=== PATIENT | female | born 1970 | race Caucasian/White ===

== ENCOUNTER 2016-08-03 21:46 | Observation (INO) | payer MEDICAID ==
[~2016-08-03] VITALS: Ht 170.2 cm; Wt 132.0 kg
[2016-08-03 23:38] LABS: ASPARTATE AMINO TRANSFERASE 11 U/L (15-37); BLOOD UREA NITROGEN 18 mg/dL (7-18)
[2016-08-03 23:42] LABS: ANISOCYTOSIS 1+; OVALOCYTES 1+
[2016-08-03 23:43] LABS: MICROCYTOSIS 1+; POLYCHROMASIA 1+
[2016-08-03 23:49] LABS: IS PT STATUS REG ER OR PRE ER? YES
[2016-08-03] MEDS ORDERED: BUPR200T2 PO (23:50)
[2016-08-03] MEDS ORDERED: ARIP10TA13 PO (23:50)
[2016-08-03] MEDS ORDERED: CITA20TA5 PO (23:50)
[2016-08-03] MEDS ORDERED: TRAZ100T15 PO (23:50)
[2016-08-03] MEDS ORDERED: PRAZ2CAP2 PO (23:50)
[2016-08-03] MEDS ORDERED: SODIUM CHLORIDE 0.9% 1,000 ML IV ONE (23:55)
[2016-08-03] MEDS ORDERED: MORPHINE SULFATE 4 MG/ML, 1ML ONE (23:59)
[2016-08-04] MEDS ORDERED: NITROGLYCERIN SINGLE TAB 0.4 MG SL PRN
[2016-08-04] MEDS ORDERED: SODIUM CHLORIDE FLUSH 10ML SYR IVF ONE
[2016-08-04] MEDS ORDERED: ASPIRIN 81 MG TABLET CHEW ONE
[2016-08-04] MEDS ORDERED: NITROGLYCERIN SINGLE TAB 0.4 MG SL ONE
[2016-08-04] MEDS ORDERED: ASPIRIN 81 MG TABLET CHEW PO ONE
[2016-08-04] MEDS ORDERED: ONDANSETRON 2MG/ML, 2ML IVP PRN (00:30)
[2016-08-04] MEDS ORDERED: POLYETHYLENE GLYCOL 17 GM PACKET PO PRN (00:30)
[2016-08-04] MEDS ORDERED: DOCUSATE 100 MG CAPSULE PO PRN (00:30)
[2016-08-04] MEDS ORDERED: HYDROcodone/APAP 5/325 TABLET PO PRN (00:30)
[2016-08-04] MEDS ORDERED: ACETAMINOPHEN 325 MG TABLET PO PRN (00:30)
[2016-08-04] MEDS ORDERED: MORPHINE SULFATE 4 MG/ML, 1ML IVPush PRN ×2 (00:30)
[2016-08-04] MEDS ORDERED: BISACODYL 10 MG SUPP PR PRN (00:30)
[2016-08-04] MEDS ORDERED: NITROGLYCERIN 0.4 MG BOTTLE (25 TABS) SL PRN (00:30)
[2016-08-04] MEDS ORDERED: ENOXAPARIN 40 MG/0.4 ML ONE (00:40)
[2016-08-04] MEDS: ENOXAPARIN 40 MG/0.4 ML SQ SCH (01:34)
[2016-08-04] MEDS: TRAZODONE 100MG TABLET PO SCH ×2 (01:34→21:03)
[2016-08-04 06:11] LABS: IS PT STATUS REG ER OR PRE ER? YES
[2016-08-04] MEDS ORDERED: ASPIRIN 325 MG TABLET EC ONE (09:24)
[2016-08-04 10:36] VITALS: BP 118/52
[2016-08-04] MEDS: ASPIRIN 325 MG TABLET EC PO SCH (10:52)
[2016-08-04] MEDS: BUPROPION SR 100 MG TABLET PO SCH (10:52)
[2016-08-04] MEDS: ARIPIPRAZOLE 10 MG TABLET PO SCH (10:53)
[2016-08-04] MEDS: CITALOPRAM 20 MG TABLET PO SCH (10:53)
[2016-08-04] MEDS: PRAZOSIN 2 MG CAPSULE PO SCH (10:54)
[2016-08-04] MEDS: SODIUM CHLORIDE FLUSH 10ML SYR IVF SCH ×2 (10:55→21:03)
[2016-08-04] MEDS ORDERED: KETOROLAC 30 MG/1 ML ONE (11:17)
[2016-08-04] MEDS: KETOROLAC 30 MG/1 ML IVPush PRN ×2 (11:19→18:40)
[2016-08-04 14:20] VITALS: BP 105/76
[2016-08-04 18:24] VITALS: BP 117/77
[2016-08-05 05:26] VITALS: BP 124/84
[2016-08-05] MEDS: ASPIRIN 325 MG TABLET EC PO SCH (06:24)
[2016-08-05] MEDS: ENOXAPARIN 40 MG/0.4 ML SQ SCH (06:24)
[2016-08-05 07:50] VITALS: BP 136/84
[2016-08-05] MEDS ORDERED: REGADENOSON 0.4 MG/5 ML SYRINGE ONE (09:00)
[2016-08-05] MEDS: CITALOPRAM 20 MG TABLET PO SCH (09:35)
[2016-08-05] MEDS: BUPROPION SR 100 MG TABLET PO SCH (09:36)
[2016-08-05] MEDS: SODIUM CHLORIDE FLUSH 10ML SYR IVF SCH (09:37)
[2016-08-05] MEDS: ARIPIPRAZOLE 10 MG TABLET PO SCH (09:37)
[2016-08-05 12:49] VITALS: BP 154/85
[2016-08-05] MEDS: PRAZOSIN 2 MG CAPSULE PO SCH (12:49)
[2016-08-05] MEDS: KETOROLAC 30 MG/1 ML IVPush PRN (12:54)
== END 2016-08-05 14:44 | disposition home or self-care (01) ==
LOC: ED 23:59 → SUATTDRO 08-04 00:05 → EDIP 08-04 01:03 → INTOOBSV 08-04 01:03 → 5SO 08-04 14:21 → UNDODISIN 08-05 14:44
PROVIDERS: ATTEND Family Medicine
DX: R07.89 Other chest pain (principal); E66.01 Morbid (severe) obesity due to excess calories; F31.9 Bipolar disorder, unspecified; F41.9 Anxiety disorder, unspecified; Z68.42 Body mass index [BMI] 45.0-49.9, adult; Z72.0 Tobacco use; Z90.49 Acquired absence of other specified parts of digestive tract; Z98.890 Other specified postprocedural states
CPT/HCPCS: 36415; 71020; 78452; 80053; 80061; 83880; 84484; 85025; 93005; 93017; 96361; 96372; 96374; 96375; 96376; 99285; A9502; C9898; G0378; J1650; J1885; J2785; J7030

== ENCOUNTER 2016-09-10 17:27 | Emergency (ER) | payer MEDICAID ==
[~2016-09-10] VITALS: Ht 170.2 cm; Wt 135.9 kg
[~2016-09-10 17:27] MED LIST: ARIP10TA13 PO; BUPR200T2 PO; CITA20TA5 PO; PRAZ2CAP2 PO; TRAZ100T15 PO
[2016-09-10] MEDS ORDERED: ALBU6.7H INH (18:06)
[2016-09-10 18:51] LABS: ASPARTATE AMINO TRANSFERASE 14 U/L (15-37); BLOOD UREA NITROGEN 12 mg/dL (7-18)
[2016-09-10 19:43] VITALS: BP 115/66
[2016-09-10] MEDS ORDERED: KETOROLAC 30 MG/1 ML ONE (19:50)
[2016-09-10] MEDS ORDERED: KETOROLAC 30 MG/1 ML IM ONE (20:00)
[2016-09-12 08:35] LABS: RHEUMATOID FACTOR SCREEN NEGATIVE (NEGATIVE)
== END 2016-09-10 20:01 ==
LOC: ED 19:25
DX: M13.0 Polyarthritis, unspecified (principal); F41.9 Anxiety disorder, unspecified; F31.9 Bipolar disorder, unspecified
CPT/HCPCS: 36415; 80053; 84436; 84443; 84550; 85025; 85651; 86038; 86430; 96372; 99284; J1885

== ENCOUNTER 2016-11-27 09:06 | Emergency (ER) | payer MEDICAID ==
[~2016-11-27] VITALS: Ht 170.2 cm; Wt 135.0 kg
[~2016-11-27 09:06] MED LIST changes: +ALBU6.7H INH
[2016-11-27 11:26] VITALS: BP 123/61
== END 2016-11-27 11:29 | disposition home or self-care (01) ==
LOC: ED 11:18
DX: J45.909 Unspecified asthma, uncomplicated (principal); F17.210 Nicotine dependence, cigarettes, uncomplicated
CPT/HCPCS: 71020; 93005; 99284

== ENCOUNTER 2017-01-18 09:33 | Emergency (ER) | payer MEDICAID ==
[~2017-01-18] VITALS: Ht 165.1 cm; Wt 134.9 kg
[~2017-01-18 09:33] MED LIST changes: -ARIP10TA13 PO; +ARIP10TA33 PO
[2017-01-18 09:37] VITALS: BP 130/82
[2017-01-18] MEDS ORDERED: DEXAMETHASONE 4 MG TABLET ONE (10:46)
[2017-01-18] MEDS ORDERED: DEXAMETHASONE 4 MG/ML, 1ML PO ONE (11:00)
[2017-01-18 11:07] LABS: RAPID INFLUENZA A Negative (Negative); RAPID INFLUENZA B Negative (Negative)
== END 2017-01-18 11:22 | disposition home or self-care (01) ==
LOC: ED 10:57
DX: J02.9 Acute pharyngitis, unspecified (principal); Z90.49 Acquired absence of other specified parts of digestive tract; J45.909 Unspecified asthma, uncomplicated
CPT/HCPCS: 87081; 87400; 87880; 99284; J1100

== ENCOUNTER 2017-02-07 14:47 | Emergency (ER) | payer MEDICAID ==
[~2017-02-07] VITALS: Ht 165.1 cm; Wt 133.2 kg
[2017-02-07 14:49] VITALS: BP 135/84
[2017-02-07] MEDS ORDERED: IBUPROFEN 200 MG TABLET PO ONE (15:30)
[2017-02-07] MEDS ORDERED: DEXAMETHASONE 4 MG TABLET PO ONE (15:30)
[2017-02-07] MEDS ORDERED: IBUPROFEN 200 MG TABLET ONE (15:32)
[2017-02-07] MEDS ORDERED: DEXAMETHASONE 4 MG TABLET ONE (15:32)
== END 2017-02-07 15:39 | disposition home or self-care (01) ==
LOC: ED 15:13
DX: J02.9 Acute pharyngitis, unspecified (principal); R09.81 Nasal congestion; J34.89 Other specified disorders of nose and nasal sinuses; F31.9 Bipolar disorder, unspecified; F41.9 Anxiety disorder, unspecified; J45.909 Unspecified asthma, uncomplicated; Z90.49 Acquired absence of other specified parts of digestive tract
CPT/HCPCS: 99283

== ENCOUNTER 2017-02-11 18:10 | Emergency (ER) | payer MEDICAID ==
[~2017-02-11] VITALS: Ht 165.1 cm; Wt 131.0 kg
[2017-02-11 18:12] VITALS: BP 138/80
== END 2017-02-11 20:40 | disposition home or self-care (01) ==
LOC: ED 20:05
DX: J20.8 Acute bronchitis due to other specified organisms (principal); J01.00 Acute maxillary sinusitis, unspecified; F17.200 Nicotine dependence, unspecified, uncomplicated; F31.9 Bipolar disorder, unspecified; F41.9 Anxiety disorder, unspecified; J45.909 Unspecified asthma, uncomplicated; M19.90 Unspecified osteoarthritis, unspecified site; Z90.49 Acquired absence of other specified parts of digestive tract
CPT/HCPCS: 71020; 93005; 99284

== ENCOUNTER 2017-04-12 00:54 | Emergency (ER) | payer MEDICAID ==
[2017-04-12 04:30] VITALS: BP 132/74
== END 2017-04-12 04:35 | disposition home or self-care (01) ==
LOC: ED 04:20
DX: G44.319 Acute post-traumatic headache, not intractable (principal); F31.9 Bipolar disorder, unspecified; F41.9 Anxiety disorder, unspecified; M19.90 Unspecified osteoarthritis, unspecified site; J45.909 Unspecified asthma, uncomplicated; Z90.49 Acquired absence of other specified parts of digestive tract; Y04.0XXA Assault by unarmed brawl or fight, initial encounter; Y93.89 Activity, other specified; Y92.59 Other trade areas as the place of occurrence of the external cause; Y99.8 Other external cause status
CPT/HCPCS: 70450; 93005; 99284

== ENCOUNTER 2017-04-14 10:51 | Emergency (ER) | payer MEDICAID ==
[~2017-04-14] VITALS: Ht 165.1 cm; Wt 131.3 kg
[2017-04-14 10:56] VITALS: BP 133/81
[2017-04-14] MEDS ORDERED: HYDROcodone/APAP 5/325 TABLET PO ONE (12:00)
[2017-04-14] MEDS ORDERED: ONDANSETRON ODT 4 MG PO ONE (12:00)
[2017-04-14] MEDS ORDERED: ONDANSETRON ODT 4 MG ONE (12:00)
[2017-04-14] MEDS ORDERED: HYDROcodone/APAP 5/325 TABLET ONE (12:01)
== END 2017-04-14 13:05 | disposition home or self-care (01) ==
LOC: ED 12:07
DX: S06.0X0A Concussion without loss of consciousness, initial encounter (principal); J45.909 Unspecified asthma, uncomplicated; Z90.49 Acquired absence of other specified parts of digestive tract; Z90.89 Acquired absence of other organs; Y04.0XXA Assault by unarmed brawl or fight, initial encounter; Y93.89 Activity, other specified; Y92.89 Other specified places as the place of occurrence of the external cause; Y99.2 Volunteer activity
CPT/HCPCS: 99283; Q0162

== ENCOUNTER 2017-04-23 11:59 | Emergency (ER) | payer MEDICAID ==
[~2017-04-23] VITALS: Ht 165.1 cm; Wt 131.0 kg
[2017-04-23 12:01] VITALS: BP 140/84
[2017-04-23 14:13] LABS: RAPID INFLUENZA A Negative (Negative); RAPID INFLUENZA B Negative (Negative)
[2017-04-23 14:30] LABS: BASOPHILS # (AUTO) 0.08 x10^3/uL (0-0.1); BASOPHILS % (AUTO) 1 % (0-1); EOSINOPHILS # (AUTO) 0.09 x10^3/uL (0-0.4); EOSINOPHILS % (AUTO) 1 % (1-7); LYMPHOCYTES % (AUTO) 21 % (22-44); MD NO; MEAN CORPUSCULAR HGB CONC 31.9 g/dL (32.4-35.8); MEAN CORPUSCULAR VOLUME 75.2 fL (80-100); MONOCYTES # (AUTO) 0.56 x10^3/uL (0.2-0.8); MONOCYTES % (AUTO) 6 % (2-9); NEUTROPHILS # (AUTO) 6.96 x10^3/uL (1.8-6.8); NEUTROPHILS % (AUTO) 72 % (42-75); PLATELET COUNT 411 x10^3/uL (130-400); RED BLOOD COUNT 5.15 x10^6/uL (3.82-5.3); RED CELL DISTRIBUTION WIDTH 16.3 % (9.6-15.2)
[2017-04-23 14:40] LABS: ALBUMIN 3.5 g/dL (3.4-5.0); ANION GAP 6 mmol/L (5-15); CALCIUM 8.4 mg/dL (8.5-10.1); CHLORIDE 105 mmol/L (98-107); CREATININE 0.81 mg/dL (0.55-1.02)
[2017-04-23] MEDS ORDERED: KETOROLAC 30 MG/1 ML IM ONE (15:30)
[2017-04-23] MEDS ORDERED: MECLIZINE CHEWABLE 25 MG TAB PO ONE (15:30)
[2017-04-23 15:38] LABS: TROPONIN I < 0.015 ng/mL (0.000-0.045)
[2017-04-23] MEDS ORDERED: MECLIZINE CHEWABLE 25 MG TAB ONE (15:44)
[2017-04-23] MEDS ORDERED: KETOROLAC 30 MG/1 ML ONE (15:45)
== END 2017-04-23 16:53 | disposition home or self-care (01) ==
LOC: ED 16:30
DX: R07.89 Other chest pain (principal); R42 Dizziness and giddiness; F17.200 Nicotine dependence, unspecified, uncomplicated; F31.9 Bipolar disorder, unspecified; M19.90 Unspecified osteoarthritis, unspecified site; Z90.49 Acquired absence of other specified parts of digestive tract
CPT/HCPCS: 36415; 71046; 80048; 82040; 84484; 85025; 87400; 93005; 96372; 99285; J1885

== ENCOUNTER 2017-05-11 08:39 | Emergency (ER) | payer MEDICAID ==
[~2017-05-11] VITALS: Ht 165.1 cm; Wt 131.3 kg
[2017-05-11 08:40] VITALS: BP 131/80
[2017-05-11] MEDS ORDERED: SUMATRIPTAN 6MG/0.5ML SQ ONE ×2 (09:47→10:00)
== END 2017-05-11 10:06 | disposition home or self-care (01) ==
LOC: ED 09:06
DX: G43.909 Migraine, unspecified, not intractable, without status migrainosus (principal)
CPT/HCPCS: 93005; 96372; 99283; J3030

== ENCOUNTER 2017-06-25 05:34 | Inpatient (IN) | payer MEDICAID ==
[~2017-06-25] VITALS: Ht 165.1 cm; Wt 132.3 kg
[2017-06-25] MEDS ORDERED: LORazepam 1MG TABLET ONE (05:54)
[2017-06-25] MEDS ORDERED: SODIUM CHLORIDE FLUSH 10ML SYR IVF ONE (06:00)
[2017-06-25] MEDS ORDERED: SODIUM CHLORIDE 0.9% 1,000ML IVBOLUS ONE (06:00)
[2017-06-25] MEDS ORDERED: LORazepam 1MG TABLET PO ONE (06:00)
[2017-06-25 06:05] LABS: BASOPHILS # (AUTO) 0.09 x10^3/uL (0-0.1); BASOPHILS % (AUTO) 1 % (0-1); EOSINOPHILS % (AUTO) 1 % (1-7); LYMPHOCYTES # (AUTO) 1.58 x10^3/uL (1-3.4); LYMPHOCYTES % (AUTO) 19 % (22-44); MD NO; MEAN CORPUSCULAR HEMOGLOBIN 23.6 pg (27.0-34.8); MEAN CORPUSCULAR HGB CONC 32.4 g/dL (32.4-35.8); MEAN CORPUSCULAR VOLUME 72.8 fL (80-100); MEAN PLATELET VOLUME 8.1 fL (7.4-10.4); MONOCYTES % (AUTO) 7 % (2-9); NEUTROPHILS # (AUTO) 5.81 x10^3/uL (1.8-6.8); NEUTROPHILS % (AUTO) 71 % (42-75); PLATELET COUNT 363 x10^3/uL (130-400); RED BLOOD COUNT 5.26 x10^6/uL (3.82-5.3)
[2017-06-25 06:12] LABS: ALBUMIN 3.3 g/dL (3.4-5.0); ANION GAP 8 mmol/L (5-15); CALCIUM 8.8 mg/dL (8.5-10.1); CHLORIDE 105 mmol/L (98-107); CREATININE 0.83 mg/dL (0.55-1.02)
[2017-06-25 06:16] LABS: TROPONIN I < 0.015 ng/mL (0.000-0.045)
[2017-06-25] MEDS ORDERED: SUMA50TA3 PO (08:53)
[2017-06-25] MEDS ORDERED: TEMAZEPAM 15 MG CAPSULE PO PRN (10:30)
[2017-06-25] MEDS ORDERED: hydrALAzine 20 MG/ML, 1ML IVPush PRN (10:30)
[2017-06-25] MEDS ORDERED: ACETAMINOPHEN 325 MG TABLET PO PRN (10:30)
[2017-06-25] MEDS ORDERED: morphine SULFATE 10 MG/ML, 1ML IVPush PRN (10:30)
[2017-06-25] MEDS ORDERED: HYDROcodone/APAP 5/325 TABLET PO PRN (10:30)
[2017-06-25] MEDS ORDERED: ONDANSETRON 2MG/ML, 2ML IVPush PRN (10:30)
[2017-06-25 10:56] VITALS: BP 131/76
[2017-06-25 11:40] LABS: FREE T4 (FREE THYROXINE) 0.98 ng/dL (0.76-1.46); THYROID STIMULATING HORMONE 3.35 mIU/L (0.358-3.740)
[2017-06-25] MEDS ORDERED: PNEUMOCOCCAL VACC.PER PHARMACY IM ONE (12:00)
[2017-06-25] MEDS: NICOTINE 14MG/24 HR PATCH.TD24 TD SCH ×2 (12:29→22:08)
[2017-06-25] MEDS: ENOXAPARIN 40 MG/0.4 ML SQ SCH (12:29)
[2017-06-25] MEDS: OMEPRAZOLE 20 MG CAPSULE.DR PO SCH ×2 (12:29→22:08)
[2017-06-25] MEDS ORDERED: FLU VACC QS2017-18 (36MOS+) UP/PF 0.5 ML IM-VACC ONE (12:30)
[2017-06-25] MEDS ORDERED: PNEUMOCOCCAL 23 VACCINE IM-VACC ONE (12:30)
[2017-06-25 14:12] VITALS: BP 122/83
[2017-06-25] MEDS ORDERED: ALBUTEROL SULFATE 2.5 MG/3 ML ONE (17:40)
[2017-06-25] MEDS: ALBUTEROL SULFATE 2.5 MG/3 ML NPPB SCH ×2 (17:47→19:35)
[2017-06-25 19:31] VITALS: BP 134/81
[2017-06-25 20:43] LABS: TROPONIN I < 0.015 ng/mL (0.000-0.045)
[2017-06-26 02:31] VITALS: BP 134/83
[2017-06-26 05:05] LABS: BASOPHILS # (AUTO) 0.05 x10^3/uL (0-0.1); BASOPHILS % (AUTO) 1 % (0-1); EOSINOPHILS # (AUTO) 0.09 x10^3/uL (0-0.4); EOSINOPHILS % (AUTO) 1 % (1-7); LYMPHOCYTES % (AUTO) 15 % (22-44); MD NO; MEAN CORPUSCULAR VOLUME 71.9 fL (80-100); MEAN PLATELET VOLUME 8.2 fL (7.4-10.4); MONOCYTES % (AUTO) 8 % (2-9); NEUTROPHILS % (AUTO) 76 % (42-75); PLATELET COUNT 311 x10^3/uL (130-400); RED BLOOD COUNT 4.86 x10^6/uL (3.82-5.3); RED CELL DISTRIBUTION WIDTH 17.1 % (9.6-15.2)
[2017-06-26 05:17] LABS: ALANINE AMINOTRANSFERASE 17 U/L (12-78); ALBUMIN 2.9 g/dL (3.4-5.0); ANION GAP 8 mmol/L (5-15); CALCIUM 8.3 mg/dL (8.5-10.1); CHLORIDE 109 mmol/L (98-107); CHOLESTEROL, TOTAL 150 mg/dL (140-239); CREATININE 0.85 mg/dL (0.55-1.02)
[2017-06-26 05:20] LABS: ALKALINE PHOSPHATASE 72 U/L (45-117); BILIRUBIN,TOTAL 0.3 mg/dL (0.2-1.0); CHOL/HDL RATIO 3.5; HDL CHOL % 29 % (28-40); HDL CHOLESTEROL (DIRECT) 43 mg/dL (40-60); LDL CHOLESTEROL,CALCULATED 92 mg/dL (54-169); LDL/HDL RATIO 2.1 (0.5-3.0); TOTAL PROTEIN 6.5 g/dL (6.4-8.2); TRIGLYCERIDES 77 mg/dL (50-200); TROPONIN I < 0.015 ng/mL (0.000-0.045); VLDL CHOLESTEROL 15 mg/dL (0-25)
[2017-06-26 06:30] VITALS: BP 145/91
[2017-06-26] MEDS: ALBUTEROL SULFATE 2.5 MG/3 ML NPPB SCH ×2 (06:55→15:25)
[2017-06-26] MEDS: OMEPRAZOLE 20 MG CAPSULE.DR PO SCH (08:05)
[2017-06-26] MEDS ORDERED: REGADENOSON 0.4 MG/5 ML SYRINGE ONE (09:03)
[2017-06-26] MEDS: ENOXAPARIN 40 MG/0.4 ML SQ SCH (11:52)
[2017-06-26 12:15] VITALS: BP 105/71
[2017-06-26] MEDS ORDERED: OMEP-110 PO (13:47)
[2017-06-26] MEDS ORDERED: NICO-486 TD (13:47)
[2017-06-26] MEDS ORDERED: SIMV40TA PO (14:51)
== END 2017-06-26 16:30 | disposition home or self-care (01) | DRG 392 ==
LOC: ED 06:01 → EDIP 08:31 → 5SO 10:46 → DCLOUNGE 06-26 16:17
PROVIDERS: ADMIT Internal Medicine; ATTEND Internal Medicine
DX: K21.9 Gastro-esophageal reflux disease without esophagitis (principal); E66.01 Morbid (severe) obesity due to excess calories; Z68.42 Body mass index [BMI] 45.0-49.9, adult; E78.5 Hyperlipidemia, unspecified; F31.9 Bipolar disorder, unspecified; J45.909 Unspecified asthma, uncomplicated; Z90.49 Acquired absence of other specified parts of digestive tract; F17.210 Nicotine dependence, cigarettes, uncomplicated; G43.909 Migraine, unspecified, not intractable, without status migrainosus
CPT/HCPCS: 36415; 71045; 78452; 80048; 80053; 80061; 82040; 83735; 83880; 84100; 84439; 84443; 84484; 85025; 90686; 90732; 93005; 93017; 93306; 94640; 96360; 96361; J1650; J2785; J7613; A9502; C9898; J7030

== ENCOUNTER 2017-07-19 12:56 | Emergency (ER) | payer MEDICAID ==
[~2017-07-19] VITALS: Ht 165.1 cm; Wt 132.6 kg
[~2017-07-19 12:56] MED LIST changes: +NICO-486 TD; +OMEP-110 PO; +SIMV40TA PO; +SUMA50TA3 PO
[2017-07-19 13:03] VITALS: BP 136/81
== END 2017-07-19 14:08 | disposition home or self-care (01) ==
LOC: ED 14:02
DX: B34.9 Viral infection, unspecified (principal); F31.9 Bipolar disorder, unspecified; J45.909 Unspecified asthma, uncomplicated; F17.210 Nicotine dependence, cigarettes, uncomplicated; M19.90 Unspecified osteoarthritis, unspecified site; G89.29 Other chronic pain; Z90.49 Acquired absence of other specified parts of digestive tract
CPT/HCPCS: 71046; 99284

== ENCOUNTER 2018-04-22 15:15 | Emergency (ER) | payer MEDICAID ==
[~2018-04-22] VITALS: Ht 165.1 cm; Wt 136.0 kg
[~2018-04-22 15:15] MED LIST changes: -CITA20TA5 PO; +CITA20TA6 PO; +TRAZ-137 PO; -TRAZ100T15 PO
[2018-04-22 15:31] VITALS: BP 110/70
--- NOTE | 2018-04-22 17:33 | NUR ---
Pt to room from lobby.
--- NOTE | 2018-04-22 17:55 | NUR ---
PT REPORTS SLIP AND FALL ON STAIRS TODAY, C/O PAIN TO LOW BACK AND L HIP. STATES SHE TOOK TYLENOL WITHOUT RELIEF. DR. BRUNNER HAS SEEN PATIENT, AWAITING ORDERS.
[2018-04-22] MEDS ORDERED: CITA20TA6 PO (17:59)
[2018-04-22] MEDS ORDERED: GABA-827 PO (17:59)
[2018-04-22] MEDS ORDERED: ARIP20TA5 PO (17:59)
== END 2018-04-22 18:33 | disposition home or self-care (01) ==
LOC: ED 18:15
DX: G89.11 Acute pain due to trauma (principal); M54.5 Low back pain; M54.6 Pain in thoracic spine; J45.909 Unspecified asthma, uncomplicated; X58.XXXA Exposure to other specified factors, initial encounter; Y93.89 Activity, other specified; Y92.89 Other specified places as the place of occurrence of the external cause; Y99.8 Other external cause status
CPT/HCPCS: 72072; 72110; 99283

== ENCOUNTER 2018-10-14 18:35 | Emergency (ER) | payer MEDICAID ==
[~2018-10-14] VITALS: Ht 165.1 cm; Wt 144.1 kg
[~2018-10-14 18:35] MED LIST changes: +ARIP20TA5 PO; +GABA-827 PO
[2018-10-14 18:37] VITALS: BP 151/99
--- NOTE | 2018-10-14 18:50 | NUR ---
PT HERE FOR RIGHT AXILLARY PAIN AND LEFT LOWER DENTAL PAIN. VSS.
--- NOTE | 2018-10-14 19:52 | NUR ---
Patient/Caregiver given discharge instructions and they have confirmed that they understand the instructions. Patient ambulatory with steady gait.
== END 2018-10-14 19:54 | disposition home or self-care (01) ==
LOC: ED 19:00
DX: L03.113 Cellulitis of right upper limb (principal); K02.9 Dental caries, unspecified; F17.210 Nicotine dependence, cigarettes, uncomplicated; J45.909 Unspecified asthma, uncomplicated
CPT/HCPCS: 99283; 99406

== ENCOUNTER 2019-04-05 09:27 | Inpatient (IN) | payer MEDICAID ==
[~2019-04-05] VITALS: Ht 165.1 cm; Wt 158.0 kg
[~2019-04-05 09:27] MED LIST changes: -ALBU6.7H INH; +ALBU6.7H8 INH
[2019-04-05] MEDS ORDERED: CLOTRIMAZOLE CRM 1%, 15GM TP STA (09:54)
[2019-04-05] MEDS ORDERED: SODIUM CHLORIDE 0.9% 1,000ML IVBOLUS ONE (10:00)
[2019-04-05] MEDS ORDERED: SODIUM CHLORIDE FLUSH 10ML SYR IVF ONE (10:00)
[2019-04-05] MEDS ORDERED: CEFAZOLIN PMX 1GM/50ML 50 ML IV ONE (10:00)
[2019-04-05 10:19] LABS: BASOPHILS # (AUTO) 0.08 x10^3/uL (0-0.1); BASOPHILS % (AUTO) 1 % (0-1); EOSINOPHILS # (AUTO) 0.07 x10^3/uL (0-0.4); EOSINOPHILS % (AUTO) 1 % (1-7); LYMPHOCYTES % (AUTO) 11 % (22-44); MD NO; MEAN CORPUSCULAR HGB CONC 31.7 g/dL (32.4-35.8); MEAN CORPUSCULAR VOLUME 72.6 fL (80-100); MONOCYTES # (AUTO) 0.75 x10^3/uL (0.2-0.8); MONOCYTES % (AUTO) 7 % (2-9); NEUTROPHILS # (AUTO) 9.11 x10^3/uL (1.8-6.8); NEUTROPHILS % (AUTO) 81 % (42-75); PLATELET COUNT 329 x10^3/uL (130-400); RED BLOOD COUNT 5.44 x10^6/uL (3.82-5.3); RED CELL DISTRIBUTION WIDTH 19.6 % (9.6-15.2)
[2019-04-05] MEDS ORDERED: CEFAZOLIN PMX 1GM/50ML 50 ML ONE (10:19)
[2019-04-05 10:21] LABS: FIO2 ROOM AIR %; PH, VENOUS 7.364 pH (7.320-7.420)
--- NOTE | 2019-04-05 10:25 | NUR ---
TASK RN: IV FLUIDS INFUSING PER ORDERS, ANCEF INFUSING PER ORDERS. PT WEARING PINK WRISTBAND AND PER BEDSIDE RN BOTH SETS OF BLOOD CULTURES DRAWN AND COMPLETED. PT ATTACHED TO MONITOR AND VITALS TAKEN.
--- NOTE | 2019-04-05 10:27 | NUR ---
TASK RN: LOTRIMIN CREAM ORDERED FROM PHARMACY.
[2019-04-05 10:30] LABS: ALANINE AMINOTRANSFERASE 27 U/L (12-78); ALBUMIN 3.2 g/dL (3.4-5.0); CALCIUM 8.9 mg/dL (8.5-10.1); CREATININE 0.94 mg/dL (0.55-1.02)
[2019-04-05 10:32] LABS: ALKALINE PHOSPHATASE 96 U/L (45-117); BILIRUBIN,TOTAL 0.4 mg/dL (0.2-1.0); TOTAL PROTEIN 7.6 g/dL (6.4-8.2)
[2019-04-05 10:41] LABS: ANION GAP 6 mmol/L (5-15); CHLORIDE 107 mmol/L (98-107)
[2019-04-05 10:59] LABS: ACETONE, SERUM Negative (Negative)
--- NOTE | 2019-04-05 11:02 | NUR ---
CREAM APPLIED TO LEFT BREAST NOTED ON JUN. IV BOLUS CONTINUES TO INFUSE
[2019-04-05] MEDS ORDERED: GABA300C10 PO (11:26)
[2019-04-05] MEDS ORDERED: BECL10.62 INH (11:29)
[2019-04-05] MEDS ORDERED: ONDANSETRON 2MG/ML, 2ML IVPush ONE (11:30)
[2019-04-05] MEDS ORDERED: MORPHINE SULFATE 4 MG/ML, 1ML IVPush ONE (11:30)
[2019-04-05] MEDS ORDERED: ONDANSETRON 2MG/ML, 2ML ONE (11:31)
[2019-04-05] MEDS ORDERED: MORPHINE SULFATE 4 MG/ML, 1ML ONE (11:32)
--- NOTE | 2019-04-05 11:36 | NUR ---
MEDICATED NOTED ON MAR FOR LEFT BREAST PAIN
[2019-04-05] MEDS ORDERED: ENALAPRILAT 1.25 MG/ML, 2ML IVPush PRN (12:30)
[2019-04-05] MEDS ORDERED: CEFAZOLIN 2,000 MG in SODIUM CHLORIDE 0.9% 50 ML IV SCH (12:30)
[2019-04-05] MEDS ORDERED: ONDANSETRON 2MG/ML, 2ML IVPush PRN (12:30)
[2019-04-05] MEDS ORDERED: hydrALAzine 20 MG/ML, 1ML IVPush PRN (12:30)
--- NOTE | 2019-04-05 12:52 | NUR ---
MOVED ONTO HOSPITAL BED AND PROVIDED LUNCH TRAY
--- NOTE | 2019-04-05 13:37 | NUR ---
PATIENT RESTING IN BED, PILLOW PROVIDED.
--- NOTE | 2019-04-05 14:00 | NUR ---
first dose of ancef 2 g ordered by lucia held per verbal conversation with lucia. er dose had been given at 1026 of 1 g. lucia aware.
[2019-04-05] MEDS ORDERED: HEPARIN 5,000 UNITS/ML, 1ML ONE (14:14)
[2019-04-05] MEDS ORDERED: KETOROLAC 30 MG/1 ML ONE (14:14)
[2019-04-05] MEDS: HEPARIN 5,000 UNITS/ML, 1ML SQ SCH ×2 (14:17→20:48)
[2019-04-05] MEDS: KETOROLAC 30 MG/1 ML IV PRN ×2 (14:17→20:47)
[2019-04-05] MEDS ORDERED: OXYcodone IR 5MG TABLET ONE (15:04)
[2019-04-05] MEDS: OXYcodone IR 5MG TABLET PO PRN ×2 (15:06→22:26)
--- NOTE | 2019-04-05 16:32 | NUR ---
pain improved since medicated for same. awaiting rn to be available on floor to give report
[2019-04-05] MEDS: NYSTATIN TOPICAL POWDER 15GM TP SCH ×2 (16:33→23:04)
--- NOTE | 2019-04-05 16:51 | NUR ---
REPORT TO KRISTIN SOUSA. PT TO BE TRANSPORTED TO THE FLOOR
[2019-04-05] MEDS: SODIUM CHLORIDE 0.9% 1,000 ML IV SCH (18:18)
[2019-04-05 18:35] VITALS: BP 130/91
[2019-04-05] MEDS: CEFAZOLIN PMX 2GM/50ML 50 ML IVPB SCH (18:39)
[2019-04-06 02:15] VITALS: BP 100/59
[2019-04-06] MEDS: CEFAZOLIN PMX 2GM/50ML 50 ML IVPB SCH ×3 (02:16→17:45)
[2019-04-06] MEDS: KETOROLAC 30 MG/1 ML IV PRN ×2 (04:05→15:46)
[2019-04-06] MEDS: HEPARIN 5,000 UNITS/ML, 1ML SQ SCH ×3 (04:05→20:40)
[2019-04-06 05:53] LABS: BASOPHILS # (AUTO) 0.03 x10^3/uL (0-0.1); BASOPHILS % (AUTO) 0 % (0-1); EOSINOPHILS # (AUTO) 0.19 x10^3/uL (0-0.4); EOSINOPHILS % (AUTO) 2 % (1-7); LYMPHOCYTES # (AUTO) 1.38 x10^3/uL (1-3.4); LYMPHOCYTES % (AUTO) 16 % (22-44); MD NO; MEAN CORPUSCULAR HEMOGLOBIN 23.1 pg (27.0-34.8); MEAN CORPUSCULAR HGB CONC 30.9 g/dL (32.4-35.8); MEAN CORPUSCULAR VOLUME 74.6 fL (80-100); MEAN PLATELET VOLUME 8.3 fL (7.4-10.4); MONOCYTES # (AUTO) 0.59 x10^3/uL (0.2-0.8); MONOCYTES % (AUTO) 7 % (2-9); NEUTROPHILS # (AUTO) 6.25 x10^3/uL (1.8-6.8); NEUTROPHILS % (AUTO) 74 % (42-75); PLATELET COUNT 314 x10^3/uL (130-400); RED BLOOD COUNT 4.75 x10^6/uL (3.82-5.3); RED CELL DISTRIBUTION WIDTH 19.5 % (9.6-15.2)
[2019-04-06 05:54] LABS: ANION GAP 6 mmol/L (5-15); CALCIUM 8.4 mg/dL (8.5-10.1); CHLORIDE 109 mmol/L (98-107); CREATININE 0.88 mg/dL (0.55-1.02)
[2019-04-06 08:03] VITALS: BP 112/75
[2019-04-06] MEDS: NYSTATIN TOPICAL POWDER 15GM TP SCH ×3 (08:37→20:28)
[2019-04-06] MEDS: OXYcodone IR 5MG TABLET PO PRN ×3 (08:39→20:22)
[2019-04-06 14:17] VITALS: BP 107/71
[2019-04-06] MEDS: SODIUM CHLORIDE 0.9% 1,000 ML IV SCH (15:46)
[2019-04-06 19:33] VITALS: BP 111/56
[2019-04-06] MEDS: ACETAMINOPHEN 325 MG TABLET PO PRN (20:21)
[2019-04-07] MEDS: KETOROLAC 30 MG/1 ML IV PRN ×2 (01:43→16:34)
[2019-04-07] MEDS: CEFAZOLIN PMX 2GM/50ML 50 ML IVPB SCH ×3 (01:45→17:43)
[2019-04-07 02:50] VITALS: BP 138/64
[2019-04-07] MEDS: HEPARIN 5,000 UNITS/ML, 1ML SQ SCH ×3 (04:38→20:44)
[2019-04-07] MEDS: ACETAMINOPHEN 325 MG TABLET PO PRN (04:45)
[2019-04-07] MEDS: OXYcodone IR 5MG TABLET PO PRN ×4 (04:45→20:05)
[2019-04-07 06:35] VITALS: BP 119/79
[2019-04-07 08:21] LABS: BASOPHILS # (AUTO) 0.03 x10^3/uL (0-0.1); BASOPHILS % (AUTO) 1 % (0-1); EOSINOPHILS # (AUTO) 0.08 x10^3/uL (0-0.4); EOSINOPHILS % (AUTO) 2 % (1-7); LYMPHOCYTES # (AUTO) 1.26 x10^3/uL (1-3.4); LYMPHOCYTES % (AUTO) 25 % (22-44); MD NO; MEAN CORPUSCULAR HEMOGLOBIN 22.7 pg (27.0-34.8); MEAN CORPUSCULAR HGB CONC 31.2 g/dL (32.4-35.8); MEAN CORPUSCULAR VOLUME 72.7 fL (80-100); MEAN PLATELET VOLUME 7.9 fL (7.4-10.4); MONOCYTES % (AUTO) 8 % (2-9); NEUTROPHILS # (AUTO) 3.34 x10^3/uL (1.8-6.8); NEUTROPHILS % (AUTO) 65 % (42-75); PLATELET COUNT 309 x10^3/uL (130-400); RED BLOOD COUNT 4.62 x10^6/uL (3.82-5.3); RED CELL DISTRIBUTION WIDTH 19.8 % (9.6-15.2)
[2019-04-07] MEDS: SODIUM CHLORIDE 0.9% 1,000 ML IV SCH (09:18)
[2019-04-07] MEDS: NYSTATIN TOPICAL POWDER 15GM TP SCH ×3 (09:19→21:09)
[2019-04-07 13:00] VITALS: BP 144/88
[2019-04-07] MEDS: CLINDAMYCIN PMX 900MG/50ML 50 ML IV SCH ×2 (13:41→21:09)
[2019-04-07 19:48] VITALS: BP 146/84
[2019-04-07] MEDS: NICOTINE 14MG/24 HR PATCH.TD24 TD SCH (20:45)
[2019-04-08 02:12] VITALS: BP 109/74
[2019-04-08] MEDS: CEFAZOLIN PMX 2GM/50ML 50 ML IVPB SCH ×3 (02:26→17:44)
[2019-04-08] MEDS: OXYcodone IR 5MG TABLET PO PRN ×2 (02:32→17:57)
[2019-04-08] MEDS: HEPARIN 5,000 UNITS/ML, 1ML SQ SCH ×3 (04:58→20:40)
[2019-04-08] MEDS: CLINDAMYCIN PMX 900MG/50ML 50 ML IV SCH ×3 (04:58→20:41)
[2019-04-08 06:46] VITALS: BP 127/86
[2019-04-08] MEDS: NYSTATIN TOPICAL POWDER 15GM TP SCH ×3 (09:20→20:40)
[2019-04-08] MEDS: SODIUM CHLORIDE 0.9% 1,000 ML IV SCH (09:20)
[2019-04-08] MEDS: KETOROLAC 30 MG/1 ML IV PRN ×2 (12:25→20:52)
[2019-04-08 14:04] VITALS: BP 130/83
[2019-04-08 19:11] VITALS: BP 114/77
[2019-04-08] MEDS: NICOTINE 14MG/24 HR PATCH.TD24 TD SCH (20:41)
[2019-04-09 01:17] VITALS: BP 132/70
[2019-04-09] MEDS: CEFAZOLIN PMX 2GM/50ML 50 ML IVPB SCH ×3 (02:09→18:18)
[2019-04-09] MEDS: HEPARIN 5,000 UNITS/ML, 1ML SQ SCH ×3 (05:06→21:11)
[2019-04-09] MEDS: CLINDAMYCIN PMX 900MG/50ML 50 ML IV SCH ×3 (05:06→21:11)
[2019-04-09 06:41] VITALS: BP 136/84
[2019-04-09] MEDS: NYSTATIN TOPICAL POWDER 15GM TP SCH ×3 (10:24→21:11)
[2019-04-09] MEDS: OXYcodone IR 5MG TABLET PO PRN ×2 (10:24→18:18)
[2019-04-09 15:59] VITALS: BP 137/82
[2019-04-09 20:25] VITALS: BP 134/65
[2019-04-09] MEDS: NICOTINE 14MG/24 HR PATCH.TD24 TD SCH (21:11)
[2019-04-09] MEDS: KETOROLAC 30 MG/1 ML IV PRN (21:11)
[2019-04-10 00:44] VITALS: BP 124/71
[2019-04-10] MEDS: CEFAZOLIN PMX 2GM/50ML 50 ML IVPB SCH ×2 (02:20→10:13)
[2019-04-10] MEDS: CLINDAMYCIN PMX 900MG/50ML 50 ML IV SCH (05:10)
[2019-04-10] MEDS: HEPARIN 5,000 UNITS/ML, 1ML SQ SCH (05:10)
[2019-04-10 07:10] VITALS: BP 130/83
[2019-04-10] MEDS ORDERED: OXYC5TAB3 PO (08:07)
[2019-04-10] MEDS ORDERED: CEPH-376 PO (08:07)
[2019-04-10] MEDS ORDERED: CLIN300C8 PO (08:07)
[2019-04-10] MEDS ORDERED: ONDA4TAB7 PO (08:07)
[2019-04-10] MEDS: NYSTATIN TOPICAL POWDER 15GM TP SCH (08:30)
== END 2019-04-10 11:39 | disposition home or self-care (01) | DRG 600 ==
LOC: ED 09:49 → EDIP 11:31 → 3N 17:30 → DCLOUNGE 04-10 11:31
PROVIDERS: ADMIT Emergency Medicine; ATTEND Family Medicine
DX: N61.0 Mastitis without abscess (principal); Z68.43 Body mass index [BMI] 50.0-59.9, adult; L03.313 Cellulitis of chest wall; B35.4 Tinea corporis; B37.2 Candidiasis of skin and nail; E66.01 Morbid (severe) obesity due to excess calories; F17.200 Nicotine dependence, unspecified, uncomplicated; F31.9 Bipolar disorder, unspecified; I10 Essential (primary) hypertension; J45.909 Unspecified asthma, uncomplicated; D72.829 Elevated white blood cell count, unspecified; Z91.19 Patient's noncompliance with other medical treatment and regimen; Z90.49 Acquired absence of other specified parts of digestive tract
CPT/HCPCS: 36415; 85025; 87081; 96365; 96375; G0378; J0690; J1644; J1885; J2405; J2270; J7030

== ENCOUNTER 2019-06-30 11:55 | Emergency (ER) | payer MEDICAID ==
[~2019-06-30] VITALS: Ht 165.1 cm; Wt 145.1 kg
[~2019-06-30 11:55] MED LIST changes: +BECL10.62 INH; +CEPH-376 PO; +CLIN300C8 PO; +GABA300C10 PO; +ONDA4TAB7 PO; +OXYC5TAB3 PO; -TRAZ-137 PO; +TRAZ-175 PO
--- NOTE | 2019-06-30 13:37 | NUR ---
PT AMBULATED TO ED W/ C/O COUGH, CONGESTION, AND SORE THROAT X 3 DAYS. PT NOTED TO HAVE STRONG NONPRODUCTIVE COUGH. PT DENIES ANY KNOWN COVID EXPOSURE, PLACED IN DROPLET PRECAUTIONS. 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 ERP AT BEDSIDE.
--- NOTE | 2019-06-30 14:15 | NUR ---
TASK RN NOTE: VS REASSESSED. PT RESTING ON GURNEY, REPSS EVEN AND UNLABORED. AWAITING ORDERS FROM MD AT THIS TIME.
[2019-06-30] MEDS ORDERED: IBUPROFEN 200 MG TABLET PO ONE (14:30)
[2019-06-30 14:56] LABS: RAPID INFLUENZA A Negative (Negative); RAPID INFLUENZA B Negative (Negative)
[2019-06-30 16:22] VITALS: BP 123/60
--- NOTE | 2019-06-30 16:22 | NUR ---
PT HAS BEEN RESTING QUIETLY, DENIES ANY NEEDS AT THIS TIME, DENIES FEELING SHORT OF BREATH. ERP AT BEDSIDE. PT AWARE WAITING FOR FURTHER PENDING TESTS.
--- NOTE | 2019-06-30 17:06 | NUR ---
REVIEWED DISCHARGE INSTRUCTIONS W/ PT, VERBALIZED UNDERSTANDING TO INFORMATION PROVIDED INCLUDING FOLLOW UP CARE, RETURN PRECAUTIONS, AND HAND HYGIENE, DENIED QUESTIONS/CONCERNS. PT AMBULATED FROM ED, NO SIGNS OF DISTRESS NOTED.
== END 2019-06-30 17:09 | disposition home or self-care (01) ==
LOC: ED 15:11
DX: J06.9 Acute upper respiratory infection, unspecified (principal); J45.909 Unspecified asthma, uncomplicated; R94.31 Abnormal electrocardiogram [ECG] [EKG]
CPT/HCPCS: 71045; 87081; 87400; 87486; 87581; 87633; 87798; 87880; 93005; 99285

== ENCOUNTER 2019-08-11 00:07 | Emergency (ER) | payer MEDICAID ==
[~2019-08-11] VITALS: Ht 165.1 cm; Wt 149.0 kg
[2019-08-11] MEDS ORDERED: BUPIVACAINE/PF-EPI 0.25% 1:200K SQ ONE (01:00)
[2019-08-11] MEDS ORDERED: LIDOCAINE 1%-EPI 1:100K, 20ML SQ ONE (01:00)
[2019-08-11] MEDS ORDERED: BUPIVACAINE 0.25% ONE (01:01)
[2019-08-11] MEDS ORDERED: LIDOCAINE 1%-EPI 1:100K, 20ML ONE (01:01)
[2019-08-11] MEDS ORDERED: HYDROcodone/APAP 5/325 TABLET PO STA (01:01)
[2019-08-11] MEDS ORDERED: AMOXICILLIN 500 MG CAPSULE PO STA (01:07)
[2019-08-11] MEDS ORDERED: HYDROcodone/APAP 5/325 TABLET ONE (01:08)
[2019-08-11] MEDS ORDERED: AMOXICILLIN 500 MG CAPSULE ONE (01:11)
[2019-08-11 01:23] VITALS: BP 148/70
== END 2019-08-11 01:25 | disposition home or self-care (01) ==
LOC: ED 01:10
DX: K02.9 Dental caries, unspecified (principal); K08.89 Other specified disorders of teeth and supporting structures; J45.909 Unspecified asthma, uncomplicated; E66.01 Morbid (severe) obesity due to excess calories; Z68.43 Body mass index [BMI] 50.0-59.9, adult
CPT/HCPCS: 64400; 99284; J3490

== ENCOUNTER 2019-10-06 19:33 | Emergency (ER) | payer MEDICAID ==
[~2019-10-06] VITALS: Ht 165.1 cm; Wt 150.6 kg
--- NOTE | 2019-10-06 19:56 | NUR ---
PT. AMBULATORY TO ROOM FROM LOBBY WITH STEADY GAIT AT THIS TIME.
--- NOTE | 2019-10-06 20:02 | NUR ---
LATE ENTRY. PT LAYING IN BED, VSS, NO SIGNS OF ACUTE DISTRESS, UPDATED ON POC. ALL QUESTIONS ANSWERED AT THIS TIME. CALL LIGHT WITHIN REACH.
--- NOTE | 2019-10-06 20:57 | NUR ---
PT TO IMAGING.
[2019-10-06] MEDS ORDERED: OXYcodone/APAP 10/325MG TABLET PO ONE (21:00)
[2019-10-06] MEDS ORDERED: KETOROLAC 30 MG/1 ML IM ONE (21:00)
[2019-10-06] MEDS ORDERED: KETOROLAC 30 MG/1 ML ONE (21:11)
[2019-10-06] MEDS ORDERED: OXYcodone/APAP 10/325MG TABLET ONE (21:12)
--- NOTE | 2019-10-06 21:30 | NUR ---
PT MEDICATED TO MAR, SITTING IN BED, VSS, NO SIGNS OF DISTRESS, CALL LIGHT WITHIN REACH, WILL CONTINUE TO MONITOR.
--- NOTE | 2019-10-06 21:32 | NUR ---
ULTRA SOUND TO BEDSIDE.
[2019-10-06 22:42] VITALS: BP 131/62
== END 2019-10-06 23:01 | disposition home or self-care (01) ==
LOC: ED 22:57
DX: S83.92XA Sprain of unspecified site of left knee, initial encounter (principal); M54.5 Low back pain; M79.662 Pain in left lower leg; X58.XXXA Exposure to other specified factors, initial encounter; Y93.89 Activity, other specified; Y92.89 Other specified places as the place of occurrence of the external cause; Y99.8 Other external cause status
CPT/HCPCS: 73564; 93971; 96372; 99284; J1885

== ENCOUNTER 2020-01-27 11:53 | Emergency (ER) | payer MEDICAID ==
[~2020-01-27] VITALS: Ht 165.1 cm; Wt 152.6 kg
[2020-01-27 13:06] LABS: RAPID INFLUENZA A Negative (Negative); RAPID INFLUENZA B Negative (Negative)
--- NOTE | 2020-01-27 15:28 | NUR ---
PT MOVED FROM LOBBY TO 39
--- NOTE | 2020-01-27 15:36 | NUR ---
PT BROUGHT BACK FROM TRIAGE WITH CHIEF COMPLAINT OF LEFT KNEE PAIN , SURGEY BY DR.. CRUZ ONE MONTH AGO. CMS INTACT. ALSO COMPLAINTS OF NASAL CONGESTION, SORE THROAT, COUGH FOR TWO DAYS.
[2020-01-27] MEDS ORDERED: ONDANSETRON 2MG/ML, 2ML ONE (16:51)
[2020-01-27] MEDS ORDERED: ONDANSETRON 2MG/ML, 2ML IVPush ONE (17:00)
[2020-01-27 17:28] VITALS: BP 127/78
== END 2020-01-27 17:30 | disposition home or self-care (01) ==
LOC: ED 17:13
DX: S80.02XA Contusion of left knee, initial encounter (principal); Z20.828 Contact with and (suspected) exposure to other viral communicable diseases; J20.9 Acute bronchitis, unspecified; R19.7 Diarrhea, unspecified; R05 Cough; R11.0 Nausea; R07.89 Other chest pain; R50.9 Fever, unspecified; I21.9 Acute myocardial infarction, unspecified; F17.210 Nicotine dependence, cigarettes, uncomplicated; J45.909 Unspecified asthma, uncomplicated; M10.9 Gout, unspecified; E66.01 Morbid (severe) obesity due to excess calories; Z90.89 Acquired absence of other organs; Z90.49 Acquired absence of other specified parts of digestive tract; Z68.43 Body mass index [BMI] 50.0-59.9, adult; X58.XXXA Exposure to other specified factors, initial encounter; Y93.89 Activity, other specified; Y92.89 Other specified places as the place of occurrence of the external cause; Y99.8 Other external cause status
CPT/HCPCS: 36415; 71045; 73564; 87400; 87635; 93005; 96374; 99285; 99406; J2405